=== PATIENT | male | born 1995 ===

== ENCOUNTER 2021-03-19 13:19 | Emergency (ER) | payer OTHER ==
[~2021-03-19] VITALS: Ht 188 cm; Wt 99.8 kg
[2021-03-19] MEDS ORDERED: ALBU3IS INH (13:45)
[2021-03-19] MEDS ORDERED: ALBU2.5V5 INH (13:50)
[2021-03-19] MEDS ORDERED: ALBU90OI6 INH (13:50)
== END 2021-03-19 13:50 | disposition home or self-care (01) ==
LOC: ER 13:19
DX: J45.909 Unspecified asthma, uncomplicated (principal); F17.210 Nicotine dependence, cigarettes, uncomplicated; Z76.0 Encounter for issue of repeat prescription; Z79.899 Other long term (current) drug therapy
CPT/HCPCS: 99281